=== PATIENT | male | born 1940 | race Caucasian/White ===

== ENCOUNTER 2021-12-20 16:58 | Emergency (ER) | payer MEDICARE, BC ==
[~2021-12-20] VITALS: Ht 180.3 cm; Wt 94.8 kg
--- NOTE | 2021-12-20 18:29 | NUR ---
VAS PAGED AT [id number]
[2021-12-20 19:05] LABS: BASOPHILS # (AUTO) 0.1 X10'3 (0-0.2); EOSINOPHILS # (AUTO) 0.1 X10'3 (0-0.9); HEMATOCRIT 35.3 % (42.0-52.0); HEMOGLOBIN 11.7 g/dl (14.0-17.9); LYMPHOCYTES # (AUTO) 1.2 X10'3 (1.1-4.8); LYMPHOCYTES % (AUTO) 18.2 % (21-51); MEAN CORPUSCULAR HEMOGLOBIN 32.9 PG (27.0-31.0); MEAN CORPUSCULAR HGB CONC 33.3 g/dL (33.0-36.5); MEAN CORPUSCULAR VOLUME 98.8 FL (78-98); MEAN PLATELET VOLUME 8.2 FL (7.4-10.4); MONOCYTES # (AUTO) 0.7 X10'3 (0-0.9); MONOCYTES % (AUTO) 10.3 % (2-12); NEUTROPHILS # (AUTO) 4.5 X10'3 (1.8-7.7); NEUTROPHILS % (AUTO) 69.5 % (42-75); PLATELET COUNT 138 X10'3 (140-440); RED BLOOD COUNT 3.57 X10'6 (4.70-6.10); RED CELL DISTRIBUTION WIDTH 14.7 % (11.5-14.5); WHITE BLOOD COUNT 6.4 X10'3 (4.5-11.0)
[2021-12-20 19:19] LABS: ALANINE AMINOTRANSFERASE 31 U/L (12-78); ALBUMIN 3.5 G/DL (3.4-5.0); ALBUMIN/GLOBULIN RATIO 1.3 (1.1-1.5); ALKALINE PHOSPHATASE 111 IU/L (46-116); ANION GAP 9 (8-16); ASPARTATE AMINO TRANSFERASE 24 U/L (10-37); BILIRUBIN,TOTAL 0.7 MG/DL (0.1-1.0); BLOOD UREA NITROGEN 30 MG/DL (7-18); BUN/CREATININE RATIO 22.6 (5.4-32.0); CALCIUM 8.7 MG/DL (8.5-10.1); CHLORIDE 109 MMOL/L (99-107); CREATININE 1.33 MG/DL (0.60-1.10); GLUCOSE 93 MG/DL (70-104); POTASSIUM 4.7 MMOL/L (3.5-5.1); SODIUM 148 MMOL/L (135-145); TOTAL CARBON DIOXIDE 29.6 MMOL/L (24-32); TOTAL PROTEIN 6.1 G/DL (6.4-8.2); eGFR 52 ML/MIN
[2021-12-20] MEDS ORDERED: iohexol 350MG/ML 100ml bottle IV ONE (19:31)
[2021-12-20] MEDS ORDERED: furosemide 10 MG/1 ML 10ml inj IV ONE (20:50)
--- NOTE | 2021-12-20 20:52 | NUR ---
pt off to ct
[2021-12-20] MEDS ORDERED: FURO-150 PO (21:56)
[2021-12-20 22:59] VITALS: BP 129/74
== END 2021-12-20 23:03 | disposition home or self-care (01) ==
LOC: ER 16:59
DX: I50.9 Heart failure, unspecified (principal); R06.00 Dyspnea, unspecified; M79.605 Pain in left leg; R06.02 Shortness of breath; I48.91 Unspecified atrial fibrillation; Z88.5 Allergy status to narcotic agent; Z79.899 Other long term (current) drug therapy
CPT/HCPCS: 36415; 71045; 71275; 80053; 83880; 85025; 85610; 93005; 93306; 93971; 96374; 99285; J1940; Q9967